=== PATIENT | male | born 1970 | race Caucasian/White ===

== ENCOUNTER → 2019-08-25 00:01 | Outpatient (BNVA) | payer SELFPAY | PROVIDERS: Visit Provider Nurse Practitioner | DX: M25.562 Pain in left knee (principal); S89.92XA Unspecified injury of left lower leg, initial encounter; W19.XXXA Unspecified fall, initial encounter | CPT/HCPCS: 73562 ==

== ENCOUNTER 2022-01-26 12:53 | Emergency (ER) | payer SELFPAY ==
[2022-01-26 16:33] VITALS: BP 131/72; PULSE 71; RESP 14; TEMP 36.9; O2SAT 100; BMI 22.8
--- NOTE | 2022-01-26 16:57 | CTR_ITS ---
PROCEDURE INFORMATION: Exam: CT Abdomen And Pelvis Without Contrast Exam date and time: 01/26/2022 6:42 PM Age: 51 years old Clinical indication: Abdominal pain; Generalized; Additional info: Abd pain TECHNIQUE: Imaging protocol: Computed tomography of the abdomen and pelvis without contrast. Radiation optimization: All CT scans at this facility use at least one of these dose optimization techniques: automated exposure control; mA and/or kV adjustment per patient size (includes targeted exams where dose is matched to clinical indication); or iterative reconstruction. COMPARISON: No relevant prior studies available. RADIATION DOSE METRICS: Total DLP (mGy-cm): 602.19 FINDINGS: Lungs: Emphysematous changes. Liver: Normal. No mass. Gallbladder and bile ducts: Normal. No calcified stones. No ductal dilation. Pancreas: Normal. No ductal dilation. Spleen: Normal. No splenomegaly. Adrenal glands: Normal. No mass. Kidneys and ureters: Left kidney nonobstructive calyceal stone. Minimal perinephric edema bilaterally likely related to chronic renal insufficiency, pyelonephritis is a less likely consideration depending on the clinical scenario. Stomach and bowel: Mild sigmoid colon wall thickening likely due to nondistention, a mild colitis may also be a consideration depending on the clinical scenario. Diverticulosis without diverticulitis. Appendix: No evidence of appendicitis. Intraperitoneal space: Unremarkable. No free air. No significant fluid collection. Vasculature: Unremarkable. No abdominal aortic aneurysm. Lymph nodes: Unremarkable. No enlarged lymph nodes. Urinary bladder: Unremarkable as visualized. Reproductive: Unremarkable as visualized. Bones/joints: Unremarkable. No acute fracture. Soft tissues: Unremarkable. CT/CT abdomen pelvis con [id number] IMPRESSION: 1. Mild sigmoid colon wall thickening likely due to nondistention, a mild colitis may also be a consideration depending on the clinical scenario. 2. Emphysematous changes. 3. Diverticulosis without diverticulitis. 4. Left kidney nonobstructive calyceal stone. 5. Minimal perinephric edema bilaterally likely related to chronic renal insufficiency, pyelonephritis is a less likely consideration depending on the clinical scenario.
--- NOTE | 2022-01-26 17:09 | ED_ITS ---
Documented by User: Bhavana Zarate MD 02/01/22 20:29 HPI - General Adult General: Chief complaint: Abdominal Pain Stated complaint: abd pain Time Seen by Provider: 01/26/22 16:57 History of Present Illness: Onset:[] Duration:[] Location:[] Severity:[] Associated symptoms: Deny chest pain, dyspnea, nausea, rash, palpitations or vomiting Review of Systems Const: Denies: fever(s) or chills Eyes: Denies: change in vision ENMT: Denies: mouth pain Card: Denies: chest pain or palpitations Resp: Denies: dyspnea or non-productive cough GI: Denies: abdominal pain, nausea, vomiting or diarrhea : Denies: dysuria Musc: Denies: extremity pain Skin/Breast: Denies: rash or new lesions Neuro: Denies: weakness in extremities Psych: Reports: other (Normal mood) Aneesh/Lymph: Denies: easy bruising PFS ED PFSH: Medical History (Updated 01/28/22 @ 23:00 by Layne Weeks MD) No pertinent past medical history Social History Smoking and tobacco status: current every day smoker Physical Exam Const: COMMON NORMALS: alert HENMT: COMMON NORMALS: atraumatic HEAD & SCALP: atraumatic MOUTH: moist mucous membranes not abnormal Eye: COMMON NORMALS: EOMs intact bilaterally and conjunctivae normal CONJUNCTIVA: Yes conjunctivae normal Neck/C-Spine: COMMON NORMALS: full ROM and supple Resp: COMMON NORMALS: normal respiratory effort and clear to auscultation bilaterally AUSCULTATION: clear to auscultation bilaterally Cardio: COMMON NORMALS: regular rate RATE: regular rate GI: COMMON NORMALS: Soft to palpation and non-tender PALPATION: Yes Soft to palpation Extremity: COMMON NORMALS: full ROM Neuro: SENSORIUM/ORIENTATION: Yes alert MOTOR EXAM: No Abnormal motor strength present and Other motor observations present (no focal motor deficits) Psych: COMMON NORMALS: speech normal SPEECH: Yes normal speech MOOD & AFFECT: Yes euthymic mood Course Vital Signs: Vital signs: Vital Signs Temperature 98.4 F 01/26/22 16:33 Pulse Rate 71 01/26/22 16:33 Respiratory Rate 14 01/26/22 16:33 Blood Pressure 131/72 01/26/22 16:33 Pulse Oximetry 100 01/26/22 16:33 MDM - General Adult Medical Decision Making Patient is a 51-year-old male who comes to the ED with abdominal pain and constipation. He has not had a bowel movement in approximately 4 days. Denies any other symptoms. Vitals stable. Patient appears nontoxic and in no acute distress or pain. Exam of patient shows some mild tenderness upon palpation of the bladder. No CVA tenderness. the rest of exam is benign. White blood cell count 10.8 and the rest of CBC and CMP were unremarkable. UA showed positive nitrates, a lot of white blood cells and bacteria indicating UTI. CT of abdomen pelvis showed some mild colitis and minimal perinephric edema bilaterally. Patient was diagnosed with a UTI and constipation and was discharged home with a prescription for ciprofloxacin and MiraLAX. He was told to follow-up with his PCP in the next week for reevaluation. Return to ED precautions given. Patient understood and agreed with plan. Dr. Zarate - Patient evaluation, diagnosis, and management was performed independently by [place]. I did not personally see the patient nor staff the patient with patient's provider. I did review the patient's note today and I believe this note is consistent. Lab Data : 01/26/22 18:10 01/26/22 18:10 Radiology Impressions Abdomen/Pelvis CT 01/26/22 16:57 IMPRESSION: 1. Mild sigmoid colon wall thickening likely due to nondistention, a mild colitis may also be a consideration depending on the clinical scenario. 2. Emphysematous changes. 3. Diverticulosis without diverticulitis. 4. Left kidney nonobstructive calyceal stone. 5. Minimal perinephric edema bilaterally likely related to chronic renal insufficiency, pyelonephritis is a less likely consideration depending on the clinical scenario. Laboratory Results WBC 10.8 10^3/uL (4.0-10.0) H 01/26/22 18:10 RBC 4.56 10^6/uL (4.1-5.3) 01/26/22 18:10 Hgb 14.5 g/dL (11.7-16.6) 01/26/22 18:10 Hct 42.1 % (42.0-52.0) 01/26/22 18:10 MCV 92.3 fl (80-94) 01/26/22 18:10 MCH 31.8 pg (28.0-34.0) 01/26/22 18:10 MCHC 34.4 g/dL (30.0-36.0) 01/26/22 18:10 RDW 13.6 % (12.1-15.1) 01/26/22 18:10 Plt Count 232 10^3/cmm (130-400) 01/26/22 18:10 MPV 10.7 fL (7.4-10.4) H 01/26/22 18:10 Neut % (Auto) 63.4 % 01/26/22 18:10 Lymph % (Auto) 26.8 % 01/26/22 18:10 [place] % (Auto) 7.5 % 01/26/22 18:10 Eos % (Auto) 0.9 % 01/26/22 18:10 Baso % (Auto) 0.9 % 01/26/22 18:10 Neut # (Auto) 6.87 10^3/uL (1.8-7.7) 01/26/22 18:10 Lymph # (Auto) 2.9 10^3/uL (0.8-4.8) 01/26/22 18:10 [place] # (Auto) 0.8 10^3/uL (0.2-0.9) 01/26/22 18:10 Eos # (Auto) 0.1 10^3/uL (0.0-0.8) 01/26/22 18:10 Baso # (Auto) 0.1 10^3/uL (0.0-0.1) 01/26/22 18:10 Nucleated RBC % (auto) 0 % 01/26/22 18:10 Nucleated RBCs # 0.0 /100WBC 01/26/22 18:10 Sodium 132 mmol/L (136-145) L 01/26/22 18:10 Potassium 4.4 mmol/L (3.5-5.1) 01/26/22 18:10 Chloride 96 mmol/L (98-107) L 01/26/22 18:10 Carbon Dioxide 23 mmol/L (22-29) 01/26/22 18:10 Anion Gap 17.4 (5-19) 01/26/22 18:10 BUN 8 mg/dL (6-20) 01/26/22 18:10 Creatinine 0.8 mg/dL (0.7-1.2) 01/26/22 18:10 GFR Calculation 101.1 mL/min (90-130) 01/26/22 18:10 Glucose 87 mg/dL (65-115) 01/26/22 18:10 Calculated Osmolality 272 mOsm/kg (285-295) L 01/26/22 18:10 Calcium 9.7 mg/dL (8.5-10.5) 01/26/22 18:10 Total Bilirubin 0.3 mg/dL (0.15-1.2) 01/26/22 18:10 AST 17 U/L (0-40) 01/26/22 18:10 ALT 9 U/L (0-41) 01/26/22 18:10 Alkaline Phosphatase 75 IU/L (40-130) 01/26/22 18:10 Total Protein 8.2 g/dL (6.6-8.7) 01/26/22 18:10 Albumin 4.3 g/dL (3.5-5.2) 01/26/22 18:10 Globulin 3.9 g/dL (1.3-4.6) 01/26/22 18:10 Lipase 29 U/L (13-60) 01/26/22 18:10 Urine Color Yellow (Yellow) 01/26/22 17:34 Urine Appearance Cloudy (CLEAR) 01/26/22 17:34 Urine pH 5 (5-7) 01/26/22 17:34 Ur Specific Lyndon 1.015 (1.005-1.030) 01/26/22 17:34 Urine Protein Trace (Negative) 01/26/22 17:34 Urine Glucose (UA) Norm (Normal) 01/26/22 17:34 Urine Ketones 1+ (Negative) H 01/26/22 17:34 Urine Blood 2+ (Negative) H 01/26/22 17:34 Urine Nitrate Positive (Negative) H 01/26/22 17:34 Urine Bilirubin Neg (Negative) 01/26/22 17:34 Urine Urobilinogen Norm mg/dL (Negative) 01/26/22 17:34 Ur Leukocyte Esterase 2+ (Negative) H 01/26/22 17:34 Urine RBC 10-15 /hpf (0-2) H 01/26/22 17:34 Urine WBC >100 /hpf (0-5) H 01/26/22 17:34 Ur Squamous Epith Cells 0-4 /hpf (0-5) H 01/26/22 17:34 Amorphous Sediment Not Reportable 01/26/22 17:34 Urine Bacteria 4+ /hpf (NONE) H 01/26/22 17:34 Urine Mucus Trace /hpf 01/26/22 17:34 Discharge Plan Discharge Patient Disposition: Home Clinical Impression: Constipation UTI (urinary tract infection) Qualifiers: Urinary tract infection type: acute cystitis Hematuria presence: with hematuria Qualified Code(s): N30.01 - Acute cystitis with hematuria Condition: Stable Prescriptions: New ciprofloxacin HCl 500 mg tablet 500 mg PO BID 7 Days Qty: 14 0RF Miralax 17 gram/dose powder 17 g PO DAILY PRN (Reason: constipation) Qty: 119 0RF No Action Golytely 236-22.74-6.74 -5.86 gram recon soln 240 ml PO Q10M Qty: 4000 0RF Rx Instructions: until fecal effluent is clear Discharge Orders: Discharge ED (Routine); Ordered 01/26/22 Ordered By: [place] Discharge Diet: Regular Discharge Activity: Increase activity as tolerated Activity Restrictions/Additional Instructions: Follow-up with medical provider as directed in the next 5 to 7 days reevaluation. Take medications as prescribed. Eat a high-fiber diet with fruits and vegetables. Drink plenty of fluids and stay hydrated. To the ER or your medical provider if condition worsens. Please read and understand discharge instructions. Thank you for choosing [facility] for your healthcare needs today. Please realize this is an emergency room and that we are providing you with a medical screening exam and this may not be complete and all inclusive of all the testing and or work up that you may need to determine your ailment or severity of your illness. It is very important that you follow up as instructed or that you return to the Emergency Department should you have concerns or if your condition changes or worsens in any way. Coding Level of Care Code ED Work Checker for Chg Fwd Exam Comprehensive Documented by User: ANNEMARIE Wilhelm 01/26/22 21:43 HPI - General Adult General: Chief complaint: Abdominal Pain Stated complaint: abd pain Time Seen by Provider: 01/26/22 16:57 History of Present Illness: Patient is a 51-year-old male comes to the ED with constipation. He has not had a bowel movement in 4 days. He is still able to eat but has had less of an appetite over the past couple days. He will have episodes of abdominal pain that come and go throughout the day for the past 4 days but denies any current abdominal pain. Any nausea, vomiting, fever, chills, chest pain, abdominal pain, bladder symptoms. Review of Systems GI: Reports: constipation; Denies: abdominal pain PFSH ED PFSH: Medical History (Updated 01/28/22 @ 23:00 by Layne Weeks MD) No pertinent past medical history Social History Smoking and tobacco status: current every day smoker Physical Exam Const: COMMON NORMALS: no acute distress GENERAL APPEARANCE: cooperative GI: PALPATION: Yes Bladder palpation abnormal : COMMON NORMALS: Yes no CVA tenderness BLADDER/KIDNEY EXAM: Yes no CVA tenderness and Yes Bladder palpation abnormal Bladder abnormal details: tender (Mild tenderness) Back/Pelvis: COMMON NORMALS: no CVA tenderness Skin: GENERAL SKIN EXAM: dry skin Course Vital Signs: Vital signs: Vital Signs Temperature 98.4 F 01/26/22 16:33 Pulse Rate 71 01/26/22 16:33 Respiratory Rate 14 01/26/22 16:33 Blood Pressure 131/72 01/26/22 16:33 Pulse Oximetry 100 01/26/22 16:33 [facility] - General Adult Medical Decision Making Patient is a 51-year-old male who comes to the ED with abdominal pain and constipation. He has not had a bowel movement in approximately 4 days. Denies any other symptoms. Vitals stable. Patient appears nontoxic and in no acute distress or pain. Exam of patient shows some mild tenderness upon palpation of the bladder. No CVA tenderness. the rest of exam is benign. White blood cell count 10.8 and the rest of CBC and CMP were unremarkable. UA showed positive nitrates, a lot of white blood cells and bacteria indicating UTI. CT of abdomen pelvis showed some mild colitis and minimal perinephric edema bilaterally. Patient was diagnosed with a UTI and constipation and was discharged home with a prescription for ciprofloxacin and MiraLAX. He was told to follow-up with his PCP in the next week for reevaluation. Return to ED precautions given. Patient understood and agreed with plan. Lab Data I reviewed the patient's lab results. : 01/26/22 18:10 01/26/22 18:10 Radiology Impressions Abdomen/Pelvis CT 01/26/22 16:57 IMPRESSION: 1. Mild sigmoid colon wall thickening likely due to nondistention, a mild colitis may also be a consideration depending on the clinical scenario. 2. Emphysematous changes. 3. Diverticulosis without diverticulitis. 4. Left kidney nonobstructive calyceal stone. 5. Minimal perinephric edema bilaterally likely related to chronic renal insufficiency, pyelonephritis is a less likely consideration depending on the clinical scenario. Laboratory Results WBC 10.8 10^3/uL (4.0-10.0) H 01/26/22 18:10 RBC 4.56 10^6/uL (4.1-5.3) 01/26/22 18:10 Hgb 14.5 g/dL (11.7-16.6) 01/26/22 18:10 Hct 42.1 % (42.0-52.0) 01/26/22 18:10 MCV 92.3 fl (80-94) 01/26/22 18:10 MCH 31.8 pg (28.0-34.0) 01/26/22 18:10 MCHC 34.4 g/dL (30.0-36.0) 01/26/22 18:10 RDW 13.6 % (12.1-15.1) 01/26/22 18:10 Plt Count 232 10^3/cmm (130-400) 01/26/22 18:10 MPV 10.7 fL (7.4-10.4) H 01/26/22 18:10 Neut % (Auto) 63.4 % 01/26/22 18:10 Lymph % (Auto) 26.8 % 01/26/22 18:10 [place] % (Auto) 7.5 % 01/26/22 18:10 Eos % (Auto) 0.9 % 01/26/22 18:10 Baso % (Auto) 0.9 % 01/26/22 18:10 Neut # (Auto) 6.87 10^3/uL (1.8-7.7) 01/26/22 18:10 Lymph # (Auto) 2.9 10^3/uL (0.8-4.8) 01/26/22 18:10 [place] # (Auto) 0.8 10^3/uL (0.2-0.9) 01/26/22 18:10 Eos # (Auto) 0.1 10^3/uL (0.0-0.8) 01/26/22 18:10 Baso # (Auto) 0.1 10^3/uL (0.0-0.1) 01/26/22 18:10 Nucleated RBC % (auto) 0 % 01/26/22 18:10 Nucleated RBCs # 0.0 /100WBC 01/26/22 18:10 Sodium 132 mmol/L (136-145) L 01/26/22 18:10 Potassium 4.4 mmol/L (3.5-5.1) 01/26/22 18:10 Chloride 96 mmol/L (98-107) L 01/26/22 18:10 Carbon Dioxide 23 mmol/L (22-29) 01/26/22 18:10 Anion Gap 17.4 (5-19) 01/26/22 18:10 BUN 8 mg/dL (6-20) 01/26/22 18:10 Creatinine 0.8 mg/dL (0.7-1.2) 01/26/22 18:10 GFR Calculation 101.1 mL/min (90-130) 01/26/22 18:10 Glucose 87 mg/dL (65-115) 01/26/22 18:10 Calculated Osmolality 272 mOsm/kg (285-295) L 01/26/22 18:10 Calcium 9.7 mg/dL (8.5-10.5) 01/26/22 18:10 Total Bilirubin 0.3 mg/dL (0.15-1.2) 01/26/22 18:10 AST 17 U/L (0-40) 01/26/22 18:10 ALT 9 U/L (0-41) 01/26/22 18:10 Alkaline Phosphatase 75 IU/L (40-130) 01/26/22 18:10 Total Protein 8.2 g/dL (6.6-8.7) 01/26/22 18:10 Albumin 4.3 g/dL (3.5-5.2) 01/26/22 18:10 Globulin 3.9 g/dL (1.3-4.6) 01/26/22 18:10 Lipase 29 U/L (13-60) 01/26/22 18:10 Urine Color Yellow (Yellow) 01/26/22 17:34 Urine Appearance Cloudy (CLEAR) 01/26/22 17:34 Urine pH 5 (5-7) 01/26/22 17:34 Ur Specific Lyndon 1.015 (1.005-1.030) 01/26/22 17:34 Urine Protein Trace (Negative) 01/26/22 17:34 Urine Glucose (UA) Norm (Normal) 01/26/22 17:34 Urine Ketones 1+ (Negative) H 01/26/22 17:34 Urine Blood 2+ (Negative) H 01/26/22 17:34 Urine Nitrate Positive (Negative) H 01/26/22 17:34 Urine Bilirubin Neg (Negative) 01/26/22 17:34 Urine Urobilinogen Norm mg/dL (Negative) 01/26/22 17:34 Ur Leukocyte Esterase 2+ (Negative) H 01/26/22 17:34 Urine RBC 10-15 /hpf (0-2) H 01/26/22 17:34 Urine WBC >100 /hpf (0-5) H 01/26/22 17:34 Ur Squamous Epith Cells 0-4 /hpf (0-5) H 01/26/22 17:34 Amorphous Sediment Not Reportable 01/26/22 17:34 Urine Bacteria 4+ /hpf (NONE) H 01/26/22 17:34 Urine Mucus Trace /hpf 01/26/22 17:34 Discharge Plan Discharge Patient Disposition: Home Clinical Impression: Constipation UTI (urinary tract infection) Qualifiers: Urinary tract infection type: acute cystitis Hematuria presence: with hematuria Qualified Code(s): N30.01 - Acute cystitis with hematuria Condition: Stable Prescriptions: New ciprofloxacin HCl 500 mg tablet 500 mg PO BID 7 Days Qty: 14 0RF Miralax 17 gram/dose powder 17 g PO DAILY PRN (Reason: constipation) Qty: 119 0RF No Action Golytely 236-22.74-6.74 -5.86 gram recon soln 240 ml PO Q10M Qty: 4000 0RF Rx Instructions: until fecal effluent is clear Discharge Orders: Discharge ED (Routine); Ordered 01/26/22 Ordered By: [place] Discharge Diet: Regular Discharge Activity: Increase activity as tolerated Activity Restrictions/Additional Instructions: Follow-up with medical provider as directed in the next 5 to 7 days reevaluation. Take medications as prescribed. Eat a high-fiber diet with fruits and vegetables. Drink plenty of fluids and stay hydrated. To the ER or your medical provider if condition worsens. Please read and understand discharge instructions. Thank you for choosing [facility] for your healthcare needs today. Please realize this is an emergency room and that we are providing you with a medical screening exam and this may not be complete and all inclusive of all the testing and or work up that you may need to determine your ailment or severity of your illness. It is very important that you follow up as instructed or that you return to the Emergency Department should you have concerns or if your condition changes or worsens in any way. Coding Level of Care Code ED Work Checker for [place] Fwd Exam Comprehensive
[2022-01-26 18:01] LABS: Add Urine Microscopic? YES; Bilirubin Urine Neg (Negative); Blood Urine 2+ (Negative); Glucose Urine UA Norm (Normal); Ketones Urine 1+ (Negative); Leukocyte Esterase Urine 2+ (Negative); Nitrate Urine Positive (Negative); Protein Urine Trace (Negative); Specific Gravity, Urine 1.015 (1.005-1.030); Urine Appearance Cloudy (CLEAR); Urine Color Yellow (Yellow); Urobilinogen Urine Norm (Negative); pH Urine 5 (5-7)
[2022-01-26 18:02] LABS: Add Urine Culture? Yes; Bacteria Urine 4+ /hpf; Mucus Urine TRACE /hpf; Squamous Epithelial Cell Urine 0-4 /hpf (0-5); WBC Urine >100 /hpf (0-5)
[2022-01-26 18:20] LABS: Basophils # 0.1 10^3/uL (0.0-0.1); Basophils % 0.9 %; Eosinophils # 0.1 10^3/uL (0.0-0.8); Eosinophils % 0.9 %; Hematocrit 42.1 % (42.0-52.0); Hemoglobin 14.5 g/dL (11.7-16.6); Lymphocytes # 2.9 10^3/uL (0.8-4.8); Lymphocytes % 26.8 %; Mean Corpuscular HGB Conc 34.4 g/dL (30.0-36.0); Mean Corpuscular Hemoglobin 31.8 pg (28.0-34.0); Mean Corpuscular Volume 92.3 fl (80-94); Mean Platelet Volume 10.7 fL (7.4-10.4); Monocytes # 0.8 10^3/uL (0.2-0.9); Monocytes % 7.5 %; Neutrophils # 6.87 10^3/uL (1.8-7.7); Neutrophils % 63.4 %; Nucleated Red Blood Cells % 0 %; Platelet Count 232 10^3/cmm (130-400); Red Blood Count 4.56 10^6/uL (4.1-5.3); Red Cell Distribution Width 13.6 % (12.1-15.1); White Blood Count 10.8 10^3/uL (4.0-10.0)
[2022-01-26 18:38] LABS: Alanine Aminotransferase 9 U/L (0-41); Albumin Level 4.3 g/dL (3.5-5.2); Alkaline Phosphatase 75 IU/L (40-130); Anion Gap 17.4 (5-19); Aspartate Amino Transferase 17 U/L (0-40); Blood Urea Nitrogen 8 mg/dL (6-20); Calcium 9.7 mg/dL (8.5-10.5); Carbon Dioxide 23 mmol/L (22-29); Chloride 96 mmol/L (98-107); Globulin 3.9 g/dL (1.3-4.6); Glomerular Filtration Rate 101.1 mL/min (90-130); Glucose 87 mg/dL (65-115); Lipase 29 U/L (13-60); Osmolality Calculated 272 mOsm/kg (285-295); Potassium 4.4 mmol/L (3.5-5.1); Sodium 132 mmol/L (136-145); Total Bilirubin 0.3 mg/dL (0.15-1.2); Total Protein 8.2 g/dL (6.6-8.7)
[2022-01-26] MEDS: ciprofloxacin 500 mg Tablet PO (20:07)
== END 2022-01-26 20:15 | disposition home or self-care (01) ==
PROVIDERS: Physician Assistant; Emergency Provider Physician Assistant
DX: N30.01 Acute cystitis with hematuria (principal); K59.01 Slow transit constipation
CPT/HCPCS: 74176; 80053; 81001; 83690; 85025; 87077; 87086; 87186; 99283

== ENCOUNTER 2022-01-28 20:11 | Emergency (ER) | payer SELFPAY ==
--- NOTE | 2022-01-28 20:11 | XRR_ITS ---
PROCEDURE INFORMATION: Exam: XR Abdomen Exam date and time: 01/28/2022 8:22 PM Age: 51 years old Clinical indication: Abdominal pain; Other: Constpation; Additional info: Constipation TECHNIQUE: Imaging protocol: XR of the abdomen. Views: Frontal supine view of the abdomen. 1 View. COMPARISON: CT abdomen pelvis con [id number] 01/26/2022 6:42 PM FINDINGS: Gastrointestinal tract: Mild colonic stool burden. No bowel dilation. Bones/joints: Unremarkable. XR/XR KUB [id number] IMPRESSION: No acute findings. Mild colonic stool burden.
[2022-01-28 20:46] VITALS: BP 116/75; PULSE 113; RESP 15; TEMP 36.9; O2SAT 96; BMI 22.8
[2022-01-28 20:51] VITALS: BP 145/84; PULSE 84; RESP 16; O2SAT 96
--- NOTE | 2022-01-28 21:45 | W.ED.ABDPA2 ---
HPI - Abdominal Pain General: Chief Complaint: Abdominal Pain Stated Complaint: constipation Time Seen by Provider: 01/28/22 21:07 Source: patient Mode of arrival: ambulatory Limitations: no limitations History of Present Illness: 51-year-old male states he has not had a bowel movement in 7 days. He states he has some lower abdominal cramping. He states the pain is a 2 out of 10 denies any vomiting he was diagnosed with a urinary tract infection last time as well he states been taking the MiraLAX along with antibiotic with minimal improvement. Denies any fever denies any worsening improving factors. Associated Symptoms: Reports change in bowel habits and constipation; Denies chills, dysuria and fever(s) Review of Systems Const: Denies: fever(s), chills, body aches or change in appetite Eyes: Denies: blurry vision or eye discomfort ENMT: Denies: throat pain or dental pain Card: Denies: chest pain Resp: Denies: dyspnea GI: Reports: constipation and change in bowel habits : Denies: dysuria Musc: Denies: neck pain or back pain Skin/Breast: Denies: rash Neuro: Denies: headache(s) Psych: Denies: depression Aneesh/Lymph: Denies: easy bruising All/Imm: Denies: urticaria PFSH ED PFSH: Medical History (Updated 01/28/22 @ 23:00 by Layne Weeks MD) No pertinent past medical history Social History Smoking and tobacco status: current every day smoker Physical Exam Const: COMMON NORMALS: no acute distress, patient oriented x3 and healthy appearing HENMT: COMMON NORMALS: normocephalic and atraumatic HEAD & SCALP: normocephalic and atraumatic Eye: COMMON NORMALS: Equal, round and reactive pupils present and EOMs intact bilaterally PUPIL: Yes Equal, round and reactive pupils present Neck/C-Spine: COMMON NORMALS: full ROM and supple Chest: COMMONS NORMALS: normal inspection of the chest and normal palpation of entire chest wall Resp: COMMON NORMALS: normal respiratory effort, No retractions, No use of accessory muscles and clear to auscultation bilaterally AUSCULTATION: clear to auscultation bilaterally Cardio: COMMON NORMALS: regular rate, regular rhythm and No murmurs present (Cardio) RATE: regular rate RHYTHM: regular rhythm GI: COMMON NORMALS: Normal to inspection, nondistended, normoactive bowel sounds present, Soft to palpation, non-tender and no masses PALPATION: Yes Soft to palpation Extremity: COMMON NORMALS: normal to inspection and full ROM Neuro: COMMON NORMALS: patient oriented x3, moves all extremities and no focal motor deficits Psych: COMMON NORMALS: mental status grossly normal, Normal thought process present and cooperative THOUGHT PROCESS: Normal thought process present Skin: COMMON NORMALS: no rashes or lesions noted and no wounds GENERAL SKIN EXAM: no rashes or lesions noted Course Vital Signs: Vital signs: Vital Signs Temperature 98.4 F 01/28/22 20:46 Pulse Rate 84 01/28/22 20:51 Respiratory Rate 18 01/28/22 22:51 Blood Pressure 143/89 01/28/22 22:51 Pulse Oximetry 97 01/28/22 22:51 MDM - Abdominal Pain Medical Decision Making Patient presents here with constipation did give him lactulose will prescribe GoLytely for home. KUB here showed no acute abnormalities besides the constipation. His blood work here is normal his UA is improved he is stable for discharge he is to follow-up his PCP and return if worsening. Lab Data : 01/28/22 22:20 01/28/22 22:00 Labs/Radiology: Radiology Impressions KUB X-Ray 01/28/22 20:11 IMPRESSION: No acute findings. Mild colonic stool burden. Laboratory Results WBC 12.4 10^3/uL (4.0-10.0) H 01/28/22 22:20 Corrected WBC Cancelled 01/28/22 22:00 RBC 4.51 10^6/uL (4.1-5.3) 01/28/22 22:20 Hgb 14.2 g/dL (11.7-16.6) 01/28/22 22:20 Hct 40.5 % (42.0-52.0) L 01/28/22 22:20 MCV 89.8 fl (80-94) 01/28/22 22:20 MCH 31.5 pg (28.0-34.0) 01/28/22 22:20 MCHC 35.1 g/dL (30.0-36.0) 01/28/22 22:20 RDW 13.4 % (12.1-15.1) 01/28/22 22:20 Plt Count 223 10^3/cmm (130-400) 01/28/22 22:20 MPV 10.8 fL (7.4-10.4) H 01/28/22 22:20 Gran % Cancelled 01/28/22 22:00 Neut % (Auto) 52.9 % 01/28/22 22:20 Lymph % (Auto) 34.6 % 01/28/22 22:20 [place] % (Auto) 9.5 % 01/28/22 22:20 Eos % (Auto) 1.9 % 01/28/22 22:20 Baso % (Auto) 0.8 % 01/28/22 22:20 Neut # (Auto) 6.57 10^3/uL (1.8-7.7) 01/28/22 22:20 Lymph # (Auto) 4.3 10^3/uL (0.8-4.8) 01/28/22 22:20 [place] # (Auto) 1.2 10^3/uL (0.2-0.9) H 01/28/22 22:20 Eos # (Auto) 0.2 10^3/uL (0.0-0.8) 01/28/22 22:20 Baso # (Auto) 0.1 10^3/uL (0.0-0.1) 01/28/22 22:20 Absolute Gran (auto) Cancelled 01/28/22 22:00 Nucleated RBC % (auto) 0 % 01/28/22 22:20 Nucleated RBCs # 0.0 /100WBC 01/28/22 22:20 Sodium 131 mmol/L (136-145) L 01/28/22 22:00 Potassium 3.5 mmol/L (3.5-5.1) 01/28/22 22:00 Chloride 95 mmol/L (98-107) L 01/28/22 22:00 Carbon Dioxide 21 mmol/L (22-29) L 01/28/22 22:00 Anion Gap 18.5 (5-19) 01/28/22 22:00 BUN 7 mg/dL (6-20) 01/28/22 22:00 Creatinine 0.8 mg/dL (0.7-1.2) 01/28/22 22:00 GFR Calculation 101.1 mL/min (90-130) 01/28/22 22:00 Glucose 99 mg/dL (65-115) 01/28/22 22: Calculated Osmolality 270 mOsm/kg (285-295) L 01/28/22 22:00 Calcium 9.1 mg/dL (8.5-10.5) 01/28/22 22:00 Total Bilirubin 0.2 mg/dL (0.15-1.2) 01/28/22 22: AST 16 U/L (0-40) 01/28/22 22: ALT 7 U/L (0-41) 01/28/22 22: Alkaline Phosphatase 71 IU/L (40-130) 01/28/22: Total Protein 8.0 g/dL (6.6-8.7) 01/28/22 22: Albumin 4.0 g/dL (3.5-5.2) 01/28/22: Globulin 4.0 g/dL (1.3-4.6) 01/28/22: Lipase 28 U/L (13-60) 01/28/22 22:00 Urine Color Yellow (Yellow) 01/28/22 22: Urine Appearance Clear (CLEAR) 01/28/22: Urine pH 5 (5-7) 01/28/22 22: Ur Specific [place] 1.005 (1.005-1.030) 01/28/22 22:00 Urine Protein Neg (Negative) 01/28/22 22:00 Urine Glucose (UA) Norm (Normal) 01/28/22 22: Urine Ketones Negative (Negative) 01/28/22 22: Urine Blood Neg (Negative) 01/28/22 22:00 Urine Nitrate Negative (Negative) 01/28/22 22: Urine Bilirubin Neg (Negative) 01/28/22 22: Urine Urobilinogen Norm mg/dL (Negative) 01/28/22 22: Ur Leukocyte Esterase Negative (Negative) 01/28/22 22:00 Discharge Plan Discharge Patient Disposition: Home Clinical Impression: Constipation Condition: Stable Prescriptions: New Golytely 236-22.74-6.74 -5.86 gram recon soln 240 ml PO Q10M Qty: 4000 0RF Rx Instructions: until fecal effluent is clear No Action ciprofloxacin HCl 500 mg tablet 500 mg PO BID 7 Days Qty: 14 0RF Miralax 17 gram/dose powder 17 g PO DAILY PRN (Reason: constipation) Qty: 119 0RF Discharge Orders: Discharge ED (Routine); Ordered 01/28/22 Ordered By: Layne Weeks Discharge Diet: Advance as tolerated Discharge Activity: Resume usual activity Patient Instructions: Constipation (ED) Coding Level of Care Code ED Paraprofessional Aide Teacher for Nicholas Fwd Exam Comprehensive
[2022-01-28] MEDS: lactulose oral liq 20 gm/30 mL UDC 30 GM PO (22:08)
[2022-01-28 22:26] LABS: Alanine Aminotransferase 7 U/L (0-41); Alkaline Phosphatase 71 IU/L (40-130); Anion Gap 18.5 (5-19); Aspartate Amino Transferase 16 U/L (0-40); Blood Urea Nitrogen 7 mg/dL (6-20); Calcium 9.1 mg/dL (8.5-10.5); Carbon Dioxide 21 mmol/L (22-29); Chloride 95 mmol/L (98-107); Glomerular Filtration Rate 101.1 mL/min (90-130); Glucose 99 mg/dL (65-115); Lipase 28 U/L (13-60); Osmolality Calculated 270 mOsm/kg (285-295); Potassium 3.5 mmol/L (3.5-5.1); Sodium 131 mmol/L (136-145); Total Bilirubin 0.2 mg/dL (0.15-1.2)
[2022-01-28 22:26] LABS: Basophils # 0.1 10^3/uL (0.0-0.1); Basophils % 0.8 %; Eosinophils # 0.2 10^3/uL (0.0-0.8); Eosinophils % 1.9 %; Hematocrit 40.5 % (42.0-52.0); Hemoglobin 14.2 g/dL (11.7-16.6); Lymphocytes # 4.3 10^3/uL (0.8-4.8); Lymphocytes % 34.6 %; Mean Corpuscular HGB Conc 35.1 g/dL (30.0-36.0); Mean Corpuscular Hemoglobin 31.5 pg (28.0-34.0); Mean Corpuscular Volume 89.8 fl (80-94); Mean Platelet Volume 10.8 fL (7.4-10.4); Monocytes # 1.2 10^3/uL (0.2-0.9); Monocytes % 9.5 %; Neutrophils # 6.57 10^3/uL (1.8-7.7); Neutrophils % 52.9 %; Nucleated Red Blood Cells % 0 %; Platelet Count 223 10^3/cmm (130-400); Red Blood Count 4.51 10^6/uL (4.1-5.3); Red Cell Distribution Width 13.4 % (12.1-15.1); White Blood Count 12.4 10^3/uL (4.0-10.0)
[2022-01-28 22:40] LABS: Slide Review Slide Review Perform
[2022-01-28 22:48] LABS: Add Urine Microscopic? NO; Charge for UA Resulting for Rev
[2022-01-28 22:51] VITALS: BP 143/89; RESP 18; O2SAT 97
[2022-01-28 22:52] LABS: Bilirubin Urine Neg (Negative); Blood Urine Neg (Negative); Glucose Urine UA Norm (Normal); Ketones Urine Negative (Negative); Leukocyte Esterase Urine Negative (Negative); Nitrate Urine Negative (Negative); Protein Urine Neg (Negative); Specific Gravity, Urine 1.005 (1.005-1.030); Urine Appearance Clear (CLEAR); Urine Color Yellow (Yellow); Urobilinogen Urine Norm (Negative); pH Urine 5 (5-7)
[2022-01-28 23:22] VITALS: BP 143/89; RESP 18; O2SAT 97
== END 2022-01-28 23:24 | disposition home or self-care (01) ==
PROVIDERS: Emergency Provider Emergency Medicine
DX: K59.00 Constipation, unspecified (principal)
CPT/HCPCS: 36415; 74018; 80053; 81003; 83690; 85025; 99283

== ENCOUNTER 2022-02-05 00:43 | Emergency (ER) | payer SELFPAY ==
[2022-02-05 01:04] VITALS: BP 99/72; PULSE 108; RESP 17; TEMP 36.8; O2SAT 97; BMI 22.8
--- NOTE | 2022-02-05 02:28 | XRR_ITS ---
PROCEDURE INFORMATION: Exam: XR Abdomen Exam date and time: 02/05/2022 2:33 AM Age: 51 years old Clinical indication: Abdominal pain; Generalized; Patient HX: C/O abd pain with constipation TECHNIQUE: Imaging protocol: Radiologic exam of the abdomen. Views: Frontal supine view of the abdomen. 1 View. COMPARISON: CR (ABDOMEN, ) 01/28/2022 8:22 PM FINDINGS: Gastrointestinal tract: No significant or disproportionate large or small bowel distention. Moderate amount of gas and stool within the colon. Bones/joints: No acute osseous abnormality. XR/XR KUB portable [id number] IMPRESSION: No acute abnormality demonstrated.
[2022-02-05 02:31] LABS: Basophils # 0.1 10^3/uL (0.0-0.1); Basophils % 0.9 %; Eosinophils # 0.3 10^3/uL (0.0-0.8); Eosinophils % 2.2 %; Hematocrit 41.1 % (42.0-52.0); Hemoglobin 14.4 g/dL (11.7-16.6); Lymphocytes # 3.5 10^3/uL (0.8-4.8); Lymphocytes % 29.4 %; Mean Corpuscular Hemoglobin 32.1 pg (28.0-34.0); Mean Corpuscular Volume 91.5 fl (80-94); Mean Platelet Volume 11.2 fL (7.4-10.4); Monocytes # 0.8 10^3/uL (0.2-0.9); Monocytes % 6.5 %; Neutrophils # 7.24 10^3/uL (1.8-7.7); Neutrophils % 60.6 %; Nucleated Red Blood Cells % 0 %; Platelet Count 229 10^3/cmm (130-400); Red Blood Count 4.49 10^6/uL (4.1-5.3); Red Cell Distribution Width 14.1 % (12.1-15.1)
[2022-02-05 02:44] LABS: Slide Review Slide Review Perform
[2022-02-05 03:11] LABS: Alanine Aminotransferase 12 U/L (0-41); Albumin Level 3.7 g/dL (3.5-5.2); Alkaline Phosphatase 66 IU/L (40-130); Blood Urea Nitrogen 8 mg/dL (6-20); C Reactive Protein 5.4 mg/L (0.0-4.9); Calcium 8.7 mg/dL (8.5-10.5); Carbon Dioxide 23 mmol/L (22-29); Chloride 96 mmol/L (98-107); Globulin 3.8 g/dL (1.3-4.6); Glomerular Filtration Rate 101.1 mL/min (90-130); Glucose 88 mg/dL (65-115); Lipase 66 U/L (13-60); Osmolality Calculated 272 mOsm/kg (285-295); Sodium 132 mmol/L (136-145); Total Bilirubin 0.2 mg/dL (0.15-1.2); Total Protein 7.5 g/dL (6.6-8.7)
[2022-02-05 03:12] LABS: Anion Gap 17.2 (5-19); Aspartate Amino Transferase 20 U/L (0-40); Potassium 4.2 mmol/L (3.5-5.1)
[2022-02-05] MEDS: magnesium hydroxide 30 mL UDC PO (03:37)
[2022-02-05] MEDS: mineral oil 30 mL UDC PO (03:37)
[2022-02-05] MEDS: lactulose oral liq 20 gm/30 mL UDC PO (03:37)
[2022-02-05 03:42] VITALS: BP 107/83; PULSE 92; RESP 16; O2SAT 98
--- NOTE | 2022-02-05 04:14 | ED_ITS ---
HPI - Abdominal Pain General: Chief Complaint: Abdominal Pain Stated Complaint: n/v/ constipated over a week Time Seen by Provider: 02/05/22 02:53 Source: patient History of Present Illness: 51-year-old male who was seen recently for constipation. He notes that this was relieved a week ago, after being seen, but that he did not fill his prescription for laxative. He has not had a bowel movement in several days. He complains of generalized, mainly left-sided abdominal pain. He denies any blood in the stool. He denies fever or vomiting. No history of belly surgery. MD elicited complaint: abdominal pain Pertinent past history: constipation Onset (ago): day(s) Pain Consistency: constant Location: Diffuse and LLQ Quality: cramping Radiation: none Migration to: no migration Exacerbating factors: nothing Relieving factors: nothing Associated Symptoms: Reports constipation, nausea, poor appetite and vomiting (Once); Denies diarrhea, dysuria, fever(s) and melena Review of Systems Const: Denies: fever(s) Card: Denies: chest pain Resp: Denies: dyspnea GI: Reports: abdominal pain, nausea, vomiting (Once) and constipation; Denies: diarrhea or melena : Denies: dysuria Neuro: Denies: confusion PFSH ED PFSH: Medical History No pertinent past medical history Social History Smoking and tobacco status: current every day smoker Physical Exam Const: COMMON NORMALS: no acute distress GENERAL APPEARANCE: cooperative; not ill appearing HENMT: COMMON NORMALS: normocephalic, atraumatic and Normal external nose present HEAD & SCALP: normocephalic and atraumatic NOSE: Normal external nose present Eye: COMMON NORMALS: Equal, round and reactive pupils present and EOMs intact bilaterally PUPIL: Yes Equal, round and reactive pupils present Neck/C-Spine: GENERAL: Yes trachea midline Chest: CHEST: Yes Symmetrical chest wall rise Resp: COMMON NORMALS: normal respiratory effort, No retractions and No use of accessory muscles Cardio: COMMON NORMALS: regular rate and regular rhythm RATE: regular rate RHYTHM: regular rhythm GI: INSPECTION: Yes normal to inspection and No abdominal distension PALPATION: Yes Tenderness to palpation present (GI) Details: LLQ Extremity: COMMON NORMALS: no pedal edema Neuro: SHANNON COMA SCALE: document GCS findings Shannon coma scale eye opening: Spontaneous [place] coma scale verbal response: Orientated Shannon coma scale motor response: Obey commands Shannon coma scale total score: 15 Course Vital Signs: Vital signs: Vital Signs Temperature 98.2 F 02/05/22 01:04 Pulse Rate 92 02/05/22 03:42 Respiratory Rate 16 02/05/22 03:42 Blood Pressure 107/83 02/05/22 03:42 Pulse Oximetry 98 02/05/22 03:42 MDM - Abdominal Pain Medical Decision Making Tenderness. No rebound tenderness. White blood cell count is 12. No left shift. BMP is normal. Liver enzymes are essentially normal. Lipase is minimally high. KUB shows left sided constipation. No perforation. He will be treated with laxative here, and discharged on lactulose for maintenance. Lab Data : 02/05/22 02:23 02/05/22 02:44 Labs/Radiology: Laboratory Results WBC 12.0 10^3/uL (4.0-10.0) H 02/05/22 02:23 RBC 4.49 10^6/uL (4.1-5.3) 02/05/22 02:23 Hgb 14.4 g/dL (11.7-16.6) 02/05/22 02:23 Hct 41.1 % (42.0-52.0) L 02/05/22 02:23 MCV 91.5 fl (80-94) 02/05/22 02:23 MCH 32.1 pg (28.0-34.0) 02/05/22 02:23 MCHC 35.0 g/dL (30.0-36.0) 02/05/22 02:23 RDW 14.1 % (12.1-15.1) 02/05/22 02:23 Plt Count 229 10^3/cmm (130-400) 02/05/22 02:23 MPV 11.2 fL (7.4-10.4) H 02/05/22 02:23 Neut % (Auto) 60.6 % 02/05/22 02:23 Lymph % (Auto) 29.4 % 02/05/22 02:23 [place] % (Auto) 6.5 % 02/05/22 02:23 Eos % (Auto) 2.2 % 02/05/22 02:23 Baso % (Auto) 0.9 % 02/05/22 02:23 Neut # (Auto) 7.24 10^3/uL (1.8-7.7) 02/05/22 02:23 Lymph # (Auto) 3.5 10^3/uL (0.8-4.8) 02/05/22 02:23 [place] # (Auto) 0.8 10^3/uL (0.2-0.9) 02/05/22 02:23 Eos # (Auto) 0.3 10^3/uL (0.0-0.8) 02/05/22 02: Baso # (Auto) 0.1 10^3/uL (0.0-0.1) 02/05/22 02: Nucleated RBC % (auto) 0 % 02/05/22 02: Nucleated RBCs # 0.0 /100WBC 02/05/22 02:23 Sodium 132 mmol/L (136-145) L 02/05/22 02:44 Potassium 4.2 mmol/L (3.5-5.1) 02/05/22 02:44 Chloride 96 mmol/L (98-107) L 02/05/22 02:44 Carbon Dioxide 23 mmol/L (22-29) 02/05/22 02:44 Anion Gap 17.2 (5-19) 02/05/22 02:44 BUN 8 mg/dL (6-20) 02/05/22 02:44 Creatinine 0.8 mg/dL (0.7-1.2) 02/05/22 02:44 GFR Calculation 101.1 mL/min (90-130) 02/05/22 02:44 Glucose 88 mg/dL (65-115) 02/05/22 02:44 Calculated Osmolality 272 mOsm/kg (285-295) L 02/05/22 02:44 Calcium 8.7 mg/dL (8.5-10.5) 02/05/22 02:44 Total Bilirubin 0.2 mg/dL (0.15-1.2) 02/05/22 02:44 AST 20 U/L (0-40) 02/05/22 02:44 ALT 12 U/L (0-41) 02/05/22 02:44 Alkaline Phosphatase 66 IU/L (40-130) 02/05/22 02:44 C-Reactive Protein 5.4 mg/L (0.0-4.9) H 02/05/22 02:44 Total Protein 7.5 g/dL (6.6-8.7) 02/05/22 02:44 Albumin 3.7 g/dL (3.5-5.2) 02/05/22 02:44 Globulin 3.8 g/dL (1.3-4.6) 02/05/22 02:44 Lipase 66 U/L (13-60) H 02/05/22 02:44 Discharge Plan Discharge Patient Disposition: Home Clinical Impression: Constipation Condition: Stable Prescriptions: New lactulose 10 gram/15 mL solution 10 g PO BID Qty: 473 0RF Discontinued polyethylene glycol 3350 [Miralax] 17 gram/dose powder 17 g PO DAILY PRN (Reason: constipation) Qty: 119 0RF peg 3350-electrolytes [Golytely] 236-22.74-6.74 -5.86 gram recon soln 240 ml PO Q10M Qty: 4000 0RF Rx Instructions: until fecal effluent is clear Discharge Orders: Discharge ED (Routine); Ordered 02/05/22 Ordered By: Bony Jorge Patient Instructions: Constipation (ED) Activity Restrictions/Additional Instructions: Return for fever greater than 100, vomiting liquids or medications, other concerning symptoms Coding Level of Care Code ED Soil And Plant Scientist for Nicholas Bender
== END 2022-02-05 03:43 | disposition home or self-care (01) ==
PROVIDERS: Emergency Provider Emergency Medicine
DX: K59.00 Constipation, unspecified (principal)
CPT/HCPCS: 74018; 80053; 83690; 85025; 86140; 99283

== ENCOUNTER 2022-03-05 01:58 | Emergency (ER) | payer SELFPAY ==
[2022-03-05 02:03] VITALS: BP 156/89; PULSE 95; RESP 18; TEMP 36.7; O2SAT 97; BMI 22.8
--- NOTE | 2022-03-05 03:43 | XRR_ITS ---
PROCEDURE INFORMATION: Exam: XR Abdomen Exam date and time: 03/05/2022 3:48 AM Age: 51 years old Clinical indication: Abdominal pain; Generalized; Additional info: Constipation TECHNIQUE: Imaging protocol: Radiologic exam of the abdomen. Views: Frontal supine view of the abdomen. 1 View. COMPARISON: CR (ABDOMEN, ) 02/05/2022 2:33 AM FINDINGS: Gastrointestinal tract: There is a moderate amount of stool throughout the colon, suggestive of constipation. Nonobstructive bowel gas pattern. Bones/joints: Unremarkable. XR/XR KUB portable [id number] IMPRESSION: Imaging findings suggestive of constipation.
--- NOTE | 2022-03-05 05:13 | W.ED.ABDPA2 ---
HPI - Abdominal Pain General: Chief Complaint: Abdominal Pain Stated Complaint: abd pain Time Seen by Provider: 03/05/22 04:18 Source: patient History of Present Illness: 51-year-old gentleman who complains of abdominal distention and constipation. No fever. No vomiting. Mild pain. He was seen nearly a month ago for similar complaints, and had been in 2 times prior to that. He was placed on lactulose by me, which he says helped. Following this, he has taken MiraLAX without relief. MD elicited complaint: abdominal pain Pertinent past history: constipation Onset (ago): day(s) Pain Consistency: constant Location: None Severity: mild Quality: fullness Radiation: none Migration to: no migration Relieving factors: nothing Associated Symptoms: Reports constipation and nausea; Denies chills, dyspepsia, dysuria, fever(s), hematochezia, hematemesis, melena and vomiting Review of Systems Const: Denies: fever(s) or chills Card: Denies: chest pain Resp: Denies: dyspnea GI: Reports: nausea and constipation; Denies: vomiting, hematemesis, hematochezia or melena : Denies: dysuria PFS ED PFSH: Medical History No pertinent past medical history Social History Smoking and tobacco status: current every day smoker Physical Exam Const: COMMON NORMALS: no acute distress GENERAL APPEARANCE: cooperative; not ill appearing HENMT: COMMON NORMALS: normocephalic HEAD & SCALP: normocephalic FACE & SINUS: normal facial exam Eye: COMMON NORMALS: Equal, round and reactive pupils present PUPIL: Yes Equal, round and reactive pupils present Chest: CHEST: Yes Symmetrical chest wall rise Resp: COMMON NORMALS: normal respiratory effort, No retractions and clear to auscultation bilaterally AUSCULTATION: clear to auscultation bilaterally Cardio: COMMON NORMALS: regular rate and regular rhythm RATE: regular rate RHYTHM: regular rhythm GI: COMMON NORMALS: Soft to palpation INSPECTION: Yes normal to inspection AUSCULTATION: Yes normoactive bowel sounds PALPATION: Yes Soft to palpation and Yes Tenderness to palpation present (GI) (minimal diffuse) Extremity: COMMON NORMALS: no pedal edema Course Vital Signs: Vital signs: Vital Signs Temperature 98.1 F 03/05/22 02:03 Pulse Rate 95 03/05/22 02:03 Respiratory Rate 17 03/05/22 05:46 Blood Pressure 156/89 03/05/22 02:03 Pulse Oximetry 97 03/05/22 02:03 MDM - Abdominal Pain Medical Decision Making KUB shows no significant bowel distention. There is no perforation. There is a moderate amount of colonic stool. He will be given a combination of lactulose, mineral oil, and milk of magnesia for home, and prescribed lactulose as a daily medication, until he can follow-up with surgery for consultation regarding possible need for colonoscopy. Case management order has been written for this. Lab Data Labs/Radiology: Radiology Impressions KUB X-Ray 03/05/22 03:43 IMPRESSION: Imaging findings suggestive of constipation. Discharge Plan Discharge Patient Disposition: Home Clinical Impression: Constipation Condition: Stable Prescriptions: Changed lactulose 10 gram/15 mL solution 10 g PO BID PRN (Reason: constipation) Qty: 1000 1RF Discharge Orders: Discharge ED (Routine); Ordered 03/05/22 Ordered By: Bony Jorge Referrals: Devon Iglesias DO [Physician] - 4-7 days Patient Instructions: Opioid Safety Activity Restrictions/Additional Instructions: Case management referral has been placed for surgery consultation as an outpatient. You should get a call early next week for an appointment with them. You may need further outpatient testing. Until such time, take the lactulose you were prescribed as directed. Coding Level of Care Code ED Head Char Filter Tank Tender for Nicholas Bender
[2022-03-05] MEDS: mineral oil 30 mL UDC PO (05:44)
[2022-03-05] MEDS: lactulose oral liq 20 gm/30 mL UDC 30 GM PO (05:44)
[2022-03-05] MEDS: magnesium hydroxide 30 mL UDC PO (05:44)
[2022-03-05 05:46] VITALS: RESP 17
--- NOTE | 2022-03-07 11:15 | DCPLANNER ---
Addendum entered by Evelia Avalos 03/15/22 13:57: network architect manager was sent the following messages from general surgery regarding follow up appointment: Attempted multiple times to reach patient and cannot reach him. We will be mailing a letter On 03/11/22 @ 08:01 Teetee Orozco Wrote To Mannequin Wig Maker Front Off Called and attempted to leave message, phone picked up and then hung up. On 03/10/22 @ 08:17 Riley Hamilton Wrote To Mannequin Wig Maker Front Off Left message 03/10 On 03/08/22 @ 08:45 Riley Hamilton Wrote To Mannequin Wig Maker Front Off Called patient and left voicemail Original Note: network architect manager had message to schedule a follow up appointment for patient with general surgery. network architect manager sent patients information to the front office staff at general surgery. Patients information will be printed and reviewed. Clinic will call patient with appointment information.
== END 2022-03-05 05:48 | disposition home or self-care (01) ==
PROVIDERS: Emergency Provider Emergency Medicine
DX: K59.00 Constipation, unspecified (principal); F17.210 Nicotine dependence, cigarettes, uncomplicated
CPT/HCPCS: 74018; 99283

== ENCOUNTER 2023-09-03 12:45 | Emergency (ER) | payer SELFPAY ==
[2023-09-03 12:54] VITALS: BP 90/68; PULSE 111; RESP 16; TEMP 37.1; O2SAT 100; BMI 19.8
[2023-09-03 13:52] LABS: Basophils # 0.1 10^3/uL (0.0-0.1); Basophils % 0.5 %; Eosinophils # 0.1 10^3/uL (0.0-0.8); Eosinophils % 0.5 %; Hematocrit 46.8 % (37-53); Lymphocytes % 22.6 %; Mean Corpuscular HGB Conc 34.4 g/dL (30-55); Mean Corpuscular Hemoglobin 33.5 pg (27-33); Mean Corpuscular Volume 97.3 fl (82-101); Mean Platelet Volume 10.8 fL (7.4-10.4); Monocytes # 0.9 10^3/uL (0.2-0.9); Monocytes % 7.1 %; Neutrophils # 9.13 10^3/uL (1.8-7.7); Neutrophils % 68.8 %; Nucleated Red Blood Cells % 0 %; Platelet Count 171 10^3/cmm (157-399); Red Blood Count 4.81 10^6/uL (3.85-5.65); Red Cell Distribution Width 13.9 % (12.1-15.1); White Blood Count 13.27 10^3/uL (3.29-11.43)
--- NOTE | 2023-09-03 13:54 | ED_ITS ---
HPI - Abdominal Pain 2 General: Chief Complaint: Abdominal Pain Stated Complaint: abd pain Time Seen by Provider: 09/03/23 13:32 Source: patient Mode of arrival: ambulatory Limitations: no limitations History of Present Illness: Patient is a 53-year-old male who presents to the ED today with a complaint of epigastric pain over the past week or so. Patient has seemed disgruntled since his arrival to the ED. He seems very annoyed/agitated during any form of history taking. He tells me pain seems to be intermittent and states it only goes away when he takes [id number] aspirin. He states he does have a history of ulcers and states ibuprofen was the previous culprit. He states he has dry heaves when he tries to eat. Denies diarrhea/constipation. He has been treating pain with lactulose stating he was trying to get the bowels moving to get whatever is inside of me out . He does report drinking two 24 oz steel reserve beers every Thurs-Sun. Reports marijuana use. No previous abdominal surgeries. MD elicited complaint: abdominal pain Pertinent past history: none Onset (ago): day(s) Pain Consistency: intermittent Location: Epigastric Severity: moderate Pain scale (0-10): 5 Quality: sharp Radiation: none Migration to: no migration Exacerbating factors: eating Relieving factors: other (aspirin) Associated Symptoms: Reports nausea; Denies change in bowel habits, chills, dysuria, fever(s), hematochezia, hematemesis, melena, syncope and vomiting Review of Systems 2 Const: Denies: fever(s), chills, body aches, fatigue or malaise Card: Denies: chest pain, edema, swelling of feet/ankles, lightheadedness, syncope or pre-syncope Resp: Denies: dyspnea GI: Reports: abdominal pain and nausea; Denies: vomiting, hematemesis, change in bowel habits, pain on defecation, rectal pain, hematochezia or melena : Denies: flank pain, difficulty urinating, dysuria, urinary frequency, urinary urgency or urinary hesitancy Skin/Breast: Denies: rash Neuro: Denies: headache(s) or dizziness PFS ED 2 PFSH: Medical History No pertinent past medical history Social History Smoking and tobacco/nicotine status: current every day tobacco/nicotine user Physical Exam 2 Const: COMMON NORMALS: no acute distress, patient oriented x3 and alert G ENERAL APPEARANCE: disheveled and other (disgruntled) O RIENTATION/CONSCIOUSNESS: Yes awake, Yes oriented to person, Yes oriented to place and Yes oriented to time HENMT: TEETH & GINGIVA: Yes poor dentition Eye: COMMON NORMALS: no scleral icterus Neck/C-Spine: COMMON NORMALS: full ROM, no lymphadenopathy and no meningeal signs Resp: COMMON NORMALS: normal respiratory effort and clear to auscultation bilaterally AUSCULTATION: clear to auscultation bilaterally Cardio: COMMON NORMALS: regular rhythm RATE: tachycardic RHYTHM: regular rhythm GI: COMMON NORMALS: Normal to inspection, nondistended, normoactive bowel sounds present, Soft to palpation, No hepatosplenomegaly present and no masses INSPECTION: Yes normal to inspection AUSCULTATION: Yes normoactive bowel sounds PALPATION: Yes Soft to palpation, Yes Tenderness to palpation present (GI) (epigastric), No Guarding due to palpation present (GI), No Rigid due to palpation and Yes No hepatosplenomegaly present : COMMON NORMALS: Yes no CVA tenderness BLADDER/KIDNEY EXAM: Yes no CVA tenderness Back/Pelvis: COMMON NORMALS: no CVA tenderness and thoracic and lumbar spine normal to inspection Extremity: COMMON NORMALS: normal to inspection GENERAL: Yes normal exam except as noted Neuro: [place] COMA SCALE: document GCS findings [place] coma scale eye opening: Spontaneous [place] coma scale verbal response: Orientated [place] coma scale motor response: [place]bey commands [place] coma scale total score: 15 COMMON NORMALS: patient oriented x3, moves all extremities, no focal motor deficits and no sensory deficits noted SENSORIUM/ORIENTATION: Yes alert, Yes oriented to person, Yes oriented to place and Yes oriented to time MENINGEAL SIGNS: Yes no meningeal signs Skin: COMMON NORMALS: no rashes or lesions noted GENERAL SKIN EXAM: no rashes or lesions noted Course 2 Vital Signs: Vital signs: Vital Signs Temperature 98.7 F 09/03/23 12:54 Pulse Rate 114 H 09/03/23 15:31 Respiratory Rate 16 09/03/23 12:54 Blood Pressure 114/85 09/03/23 15:31 Pulse Oximetry 97 09/03/23 15:31 Oxygen Delivery Me thod Room Air 09/03/23 15:31 MDM - Abdominal Pain Medical Decision Making Patient here with epigastric pain that completely resolved after GI cocktail. Risk factors for gastritis include aspirin use and chronic alcohol use. Blood work overall is unremarkable. His H&H are normal. He does not complain of black or tarry stools. Will place patient on Protonix and Carafate. Will have case management get him a primary care follow-up for further evaluation in case symptoms do not improve. Strict return to ED precautions given. Medical Records I reviewed the patient's medical records. Lab Data I reviewed the patient's lab results. 09/03/23 13:17 09/03/23 13:17 Labs/Radiology: Laboratory Results WBC 13.27 10^3/uL (3.29-11.43) H 09/03/23 13:17 RBC 4.81 10^6/uL (3.85-5.65) 09/03/23 13:17 Hgb 16.10 g/dL (11.27-16.99) 09/03/23 13:17 Hct 46.8 % (37-53) 09/03/23 13:17 MCV 97.3 fl (82-101) 09/03/23 13:17 MCH 33.5 pg (27-33) H 09/03/23 13:17 MCHC 34.4 g/dL (30-55) 09/03/23 13:17 RDW 13.9 % (12.1-15.1) 09/03/23 13:17 Plt Count 171 10^3/cmm (157-399) 09/03/23 13:17 MPV 10.8 fL (7.4-10.4) H 09/03/23 13:17 Neut % (Auto) 68.8 % 09/03/23 13:17 Lymph % (Auto) 22.6 % 09/03/23 13:17 Bowie % (Auto) 7.1 % 09/03/23 13:17 Eos % (Auto) 0.5 % 09/03/23 13:17 Baso % (Auto) 0.5 % 09/03/23 13:17 Neut # (Auto) 9.13 10^3/uL (1.8-7.7) H 09/03/23 13:17 Lymph # (Auto) 3.0 10^3/uL (0.8-4.8) 09/03/23 13:17 Bowie # (Auto) 0.9 10^3/uL (0.2-0.9) 09/03/23 13:17 Eos # (Auto) 0.1 10^3/uL (0.0-0.8) 09/03/23 13:17 Baso # (Auto) 0.1 10^3/uL (0.0-0.1) 09/03/23 13:17 Nucleated RBC % (auto) 0 % 09/03/23 13:17 Nucleated RBCs # 0.0 /100WBC 09/03/23 13:17 Sodium 130 mmol/L (136-145) L 09/03/23 13:17 Potassium 3.8 mmol/L (3.5-5.1) 09/03/23 13:17 Chloride 94 mmol/L (98-107) L 09/03/23 13:17 Carbon Dioxide 22 mmol/L (22-29) 09/03/23 13:17 Anion Gap 17.8 (5-19) 09/03/23 13:17 BUN 5 mg/dL (6-20) L 09/03/23 13:17 Creatinine 0.9 mg/dL (0.7-1.2) 09/03/23 13:17 GFR Calculation 87.6 mL/min (90-130) L 09/03/23 13:17 Glucose 107 mg/dL (65-115) 09/03/23 13:17 Calculated Osmolality 268 mOsm/kg (285-295) L 09/03/23 13:17 Calcium 9.6 mg/dL (8.5-10.5) 09/03/23 13:17 Total Bilirubin 0.2 mg/dL (0.15-1.2) 09/03/23 13:17 AST 17 U/L (0-40) 09/03/23 13:17 ALT 7 U/L (0-41) 09/03/23 13:17 Alkaline Phosphatase 78 U/L (40-130) 09/03/23 13:17 Total Protein 7.7 g/dL (6.6-8.7) 09/03/23 13:17 Albumin 3.7 g/dL (3.5-5.2) 09/03/23 13:17 Globulin 4.0 g/dL (1.3-4.6) 09/03/23 13:17 Lipase 49 U/L (13-60) 09/03/23 13:17 Urine Color Yellow (Yellow) 09/03/23 14:20 Urine Appearance Clear (CLEAR) 09/03/23 14:20 Urine pH 5 (5-7) 09/03/23 14:20 Ur Specific [place] 1.020 (1.005-1.030) 09/03/23 14:20 Urine Protein 1+ (Negative) H 09/03/23 14:20 Urine Glucose (UA) Norm (Normal) 09/03/23 14:20 Urine Ketones 1+ (Negative) H 09/03/23 14:20 Urine Blood 2+ (Negative) H 09/03/23 14:20 Urine Nitrate Negative (Negative) 09/03/23 14:20 Urine Bilirubin Neg (Negative) 09/03/23 14:20 Urine Urobilinogen 1 mg/dL (Negative) H 09/03/23 14:20 Ur Leukocyte Esterase Negative (Negative) 09/03/23 14:20 Urine RBC Rare /hpf (0-2) 09/03/23 14:20 Urine WBC 0-4 /hpf (0-5) H 09/03/23 14:20 Ur Squamous Epith Cells None /hpf (0-5) 09/03/23 14:20 Amorphous Sediment Not Reportable 09/03/23 14:20 Urine Bacteria Trace /hpf (NONE) 09/03/23 14:20 Fine Granular Casts 0-4 /lpf H 09/03/23 14:20 Urine Mucus Trace /hpf 09/03/23 14:20 No radiology studies performed this visit Discharge Plan Discharge Patient Disposition: Home Clinical Impression: Gastritis Qualifiers: Gastritis type: unspecified gastritis Chronicity: acute Gastritis bleeding: p resence of bleeding unspecified Qualified Code(s): K29.00 - Acute gastritis without bleeding Condition: Stable Prescriptions: New Protonix 40 mg tablet,delayed release (DR/EC) 40 mg PO DAILY 28 Days Qty: 28 0RF Carafate 1 gram tablet 1 g PO TID 14 Days Qty: 42 0RF No Action lactulose 10 gram/15 mL solution 10 g PO BID PRN (Reason: constipation) Qty: 1000 1RF Discharge Orders: Discharge ED (Routine); Ordered 09/03/23 Ordered By: Deanna Harris Patient Instructions: Gastritis (DC) Activity Restrictions/Additional Instructions: You need to abstain from all alcohol use and all anti-inflammatory use including aspirin. Fill your medications and start them immediately. I will have case management reach out to you to set you up with a follow-up primary care appointment in case symptoms do not improve. You need to return to the emergency department for any episodes of vomiting blood, black/tarry stools, severe abdominal pain, or any other concerns you may have. Coding Level of Care Code ED [facility]
[2023-09-03 14:02] LABS: Alanine Aminotransferase 7 U/L (0-41); Albumin Level 3.7 g/dL (3.5-5.2); Alkaline Phosphatase 78 U/L (40-130); Anion Gap 17.8 (5-19); Aspartate Amino Transferase 17 U/L (0-40); Blood Urea Nitrogen 5 mg/dL (6-20); Calcium 9.6 mg/dL (8.5-10.5); Carbon Dioxide 22 mmol/L (22-29); Chloride 94 mmol/L (98-107); Glomerular Filtration Rate 87.6 mL/min (90-130); Glucose 107 mg/dL (65-115); Lipase 49 U/L (13-60); Osmolality Calculated 268 mOsm/kg (285-295); Potassium 3.8 mmol/L (3.5-5.1); Sodium 130 mmol/L (136-145); Total Bilirubin 0.2 mg/dL (0.15-1.2); Total Protein 7.7 g/dL (6.6-8.7)
[2023-09-03] MEDS: lidocaine 2% viscous 15 ML, aluminum-mag hydrox-simethicon 30 ML, sucralfate oral liq 1 GM PO (14:22)
[2023-09-03 14:52] LABS: Blood Urine 2+ (Negative); Glucose Urine UA Norm (Normal); Ketones Urine 1+ (Negative); Protein Urine 1+ (Negative); Urine Appearance Clear (CLEAR); Urine Color Yellow (Yellow); pH Urine 5 (5-7)
[2023-09-03 14:53] LABS: Add Urine Culture? No; Add Urine Microscopic? YES; Bacteria Urine TRACE /hpf; Bilirubin Urine Neg (Negative); Fine Granular Casts Urine 0-4 /lpf; Leukocyte Esterase Urine Negative (Negative); Mucus Urine TRACE /hpf; Nitrate Urine Negative (Negative); RBC Urine RARE /hpf (0-2); Urobilinogen Urine 1 mg/dL (Negative); WBC Urine 0-4 /hpf (0-5)
[2023-09-03 15:31] VITALS: BP 114/85; PULSE 114; O2SAT 97
[2023-09-03 15:51] VITALS: BP 114/85; PULSE 114; RESP 16; TEMP 37.1; O2SAT 97
--- NOTE | 2023-09-04 08:32 | DCPLANNER ---
Message was sent to [facility] on 09/04/23 at 0832 to establish a PCP.
== END 2023-09-03 15:52 | disposition home or self-care (01) ==
PROVIDERS: Emergency Provider Physician Assistant
DX: K29.00 Acute gastritis without bleeding (principal); Z72.0 Tobacco use
CPT/HCPCS: 36415; 80053; 81001; 83690; 85025; 99283